=== PATIENT | male | born 1990 | race Caucasian/White ===

== ENCOUNTER 2019-12-09 12:00 | Inpatient (IN) | payer MEDICARE, MEDICAID, SELFPAY ==
[2019-12-09] VITALS (20 sets, daily range): BP systolic 106–183; BP diastolic 71–113; PULSE 89–151; RESP 17–30; TEMP 36.6–36.9; O2SAT 94–98; BMI 54.2
--- NOTE | 2019-12-09 12:11 | ED_ITS ---
HPI - General Adult General: Chief complaint: General Medical Stated complaint: abnormal hr Time Seen by Provider: 12/09/19 12:04 History of Present Illness: HPI narrative: 29 -year-old male with a history of hypertension presented to the doctor's office to get refills on his medications. He denies any chest pain his heart rate was rapid and beating he is a little bit sweaty when he is here today but he states he was get sweaty easily and just feels a little hot and flushed she does state he feels nervous. He did run out of his blood pressure medications as well as escatalopram and trazodone. He denies any chest pain denies any dysuria urgency or frequency no recent respiratory symptoms. No vomiting or diarrhea. Associated symptoms: Deny chest pain, dyspnea, malaise, nausea, rash or vomiting Review of Systems Const: Denies: fever, chills, body aches, change in appetite, fatigue or robbin ise ENMT: Denies: throat pain, ear pain, nasal discharge or nasal congestion Card: Denies: chest pain, edema, shortness of breath on exertion or shortness of breath when lying down Resp: Denies: shortness of breath, productive cough or non-productive cough GI: Denies: abdominal pain, nausea, vomiting, vomiting blood, coffee grounds in vomit, diarrhea, constipation, bloating, blood in stool or black tarry stool : Denies: flank pain, painful urination, urinary frequency or urinary urgency Skin/Breast: Denies: rash or itching PFSH ED PFSH: Medical History (Updated 12/11/19 @ 07:25 by Gareth Frankel DO) Cognitive developmental delay Depression HTN (hypertension) Morbid obesity Surgical History (Updated 12/09/19 @ 16:36 by Liberty Montoya MD) No history of previous surgery Social History (Updated 12/09/19 @ 16:37 by Liberty Montoya MD) Smoking and tobacco status: never smoked Alcohol intake: never Substance/Drug Use: never Lives independently: No Household members: family Physical Exam Const: COMMON NORMALS: no apparent distress GENERAL APPEARANCE: cooperative and comfortable ORIENTATION/CONSCIOUSNESS: Yes awake, Yes oriented to person, Yes oriented to place and Yes oriented to time HENMT: COMMON NORMALS: normocephalic, head/scalp atraumatic, hearing grossly normal bilaterally, external ears normal, EAC's normal, TM's normal bilaterally, nasal mucous membranes and turbinates normal, moist oral mucous membranes and oropharynx normal HEAD & SCALP: normocephalic and atraumatic NOSE: nasal mucous membranes and turbinates normal EXTERNAL EAR: Yes external ears normal EXTERNAL AUDITORY CANAL: EAC's normal TYMPANIC MEMBRANE: TM's normal bilaterally Eye: COMMON NORMALS: PERRL, EOMs intact bilaterally, conjunctivae normal and no scleral icterus CONJUNCTIVA: Yes conjunctivae normal PUPIL: Yes PERRL Neck/C-Spine: COMMON NORMALS: full ROM, no lymphadenopathy, supple and no JVD Lymph: LYMPHATIC: no lymphadenopathy noted and no lymphedema noted Resp: COMMON NORMALS: normal respiratory effort, no retractions, no use of accessory muscles and clear to auscultation bilaterally AUSCULTATION: clear to auscultation bilaterally Cardio: COMMON NORMALS: no JVD, regular rhythm and no murmurs RATE: tachycardic RHYTHM: regular rhythm GI: COMMON NORMALS: soft to palpation and no hepatosplenomegaly AU SCULTATION: Yes normoactive bowel sounds PALPATION: Yes soft, No tender, No guarding and Yes no hepatosplenomegaly Extremity: COMMON NORMALS: normal to inspection, normal capillary refill, no clubbing, cyanosis or edema, no calf tenderness and no pedal edema Neuro: SENSORIUM/ORIENTATION: Yes oriented to person, Yes oriented to place and Yes oriented to time Skin: COMMON NORMALS: no rashes or lesions noted GENERAL SKIN EXAM: no rashes or lesions noted Course Vital Signs: Vital signs: Vital Signs Temperature 97.9 F 12/11/19 04:26 Pulse Rate 120 H 12/11/19 06:00 Respiratory Rate 20 H 12/11/19 06:00 Blood Pressure 108/74 12/11/19 06:00 Pulse Oximetry 97 12/11/19 06:00 MDM - General Adult MDM Narrative: Medical decision making narrative: No evidence of sepsis patient was diaphoretic when he first came in he tells me he sweats a lot. He denies use of any street drugs. Of started on esmolol drip and was able to get his heart rate slowed down blood pressure improved we will go ahead and admit him to ICU have discussed with the hospitalist. 1 of his EKG showed what the computer had read as A. fib however it does appear to be sinus tachycardia. There are P waves present. Lab Data: Labs: Lab Results 12/09/19 12/09/19 12/09/19 Range/Units 12:17 12:17 12:17 WBC 10.7 H (4.0-10.0) 10^3/ uL RBC 6.16 H (4.1-5.3) 10^6/u L Hgb 17.6 H (11.7-16.6) g/dL Hct 52.8 H (42.0-52.0) % MCV 85.7 (80-94) fL MCH 28.6 (28.0-34.0) pg MCHC 33.3 (30.0-36.0) g/dL RDW 13.2 (12.1-15.1) % Plt Count 344 (130-400) 10^3/c mm MPV 10.5 H (7.4-10.4) fL Neut % (Auto) 64.0 % Lymph % (Auto) 22.4 % [place] % (Auto) 9.1 % Eos % (Auto) 1.7 % Baso % (Auto) 0.7 % Neut # (Auto) 6.9 (1.8-7.7) 10^3/u L Lymph # (Auto) 2.4 (0.8-4.8) 10^3/u L [place] # (Auto) 1.0 H (0.2-0.9) 10^3/u L Eos # (Auto) 0.2 (0.0-0.8) 10^3/u L Baso # (Auto) 0.1 (0.0-0.1) 10^3/u L Nucleated RBC % (a uto) 0 % Nucleated RBCs # 0.0 /100WBC D-Dimer (0-0.59) ug/mIFE U Specimen Type Sample Site ABG pH (7.35-7.45) ABG pCO2 (35-45) mmHg ABG pO2 (80.0-100.0) mmH g ABG HCO3 (22-26) mmol/L ABG O2 Saturation ABG Base Excess (-2.0-2.0) mmol/ L Je Test A-a O2 Gradient (5-10) mmHg Hematocrit (42-52) % Hgb O2 Saturation (95-100) % Carboxyhemoglobin (0.4-20.1) %THgb Methemoglobin (0.4-1.5) % Total Hemoglobin (14-18) g/dL Ionized Calcium (1.1-1.4) mmol/L O2 Delivery Device FiO2 % Road Freight Brake Coupler ID Sodium 133 L (136-145) mmol/L Potassium 4.3 (3.5-5.1) mmol/L Chloride 95 L (98-107) mmol/L Carbon Dioxide 23 (22-29) mmol/L Anion Gap 19.3 H (5-19) BUN 14 (6-20) mg/dL Creatinine 0.7 (0.7-1.2) mg/dL GFR Calculation 132.4 H (90-130) mL/min Glucose 366 H (65-115) mg/dL Calculated Osmolal ity 287 (285-295) mOsm/k g Calcium 9.4 (8.5-10.5) mg/dL Total Bilirubin 1.0 (0.15-1.2) mg/dL AST 88 H (0-40) U/L ALT 129 H (0-41) U/L Alkaline Phosphata se 98 (40-130) IU/L Troponin T Baselin e 7 (0-15) ng/mL Troponin T 120 Min [place] (0-15) ng/mL Delta Troponin T (0-10) ABS# NT-Pro-B Natriuret Pep (0-125) pg/mL Total Protein 7.5 (6.6-8.7) g/dL Albumin 4.2 (3.5-5.2) g/dL Globulin 3.3 (1.3-4.6) g/dL TSH 1.43 (0.27-4.20) uIU/ mL 12/09/19 12/09/19 12/09/19 Range/Units 12:17 12:19 14:12 WBC (4.0-10.0) 10^3/ uL RBC (4.1-5.3) 10^6/u L Hgb (11.7-16.6) g/dL Hct (42.0-52.0) % MCV (80-94) fL MCH (28.0-34.0) pg MCHC (30.0-36.0) g/dL RDW (12.1-15.1) % Plt Count (130-400) 10^3/c mm MPV (7.4-10.4) fL Neut % (Auto) % Lymph % (Auto) % [place] % (Auto) % Eos % (Auto) % Baso % (Auto) % Neut # (Auto) (1.8-7.7) 10^3/u L Lymph # (Auto) (0.8-4.8) 10^3/u L [place] # (Auto) (0.2-0.9) 10^3/u L Eos # (Auto) (0.0-0.8) 10^3/u L Baso # (Auto) (0.0-0.1) 10^3/u L Nucleated RBC % (a uto) % Nucleated RBCs # /100WBC D-Dimer 0.53 (0-0.59) ug/mIFE U Specimen Type Arterial Sample Site Radial, right ABG pH 7.44 (7.35-7.45) ABG pCO2 34.2 L (35-45) mmHg ABG pO2 78.1 L (80.0-100.0) mmH g ABG HCO3 23.3 (22-26) mmol/L ABG O2 Saturation 96.5 ABG Base Excess -0.1 (-2.0-2.0) mmol/ L Je Test Pos A-a O2 Gradient 28.8 H (5-10) mmHg Hematocrit 54.2 H (42-52) % Hgb O2 Saturation 95.1 (95-100) % Carboxyhemoglobin 0.9 (0.4-20.1) %THgb Methemoglobin 0.6 (0.4-1.5) % Total Hemoglobin 17.7 (14-18) g/dL Ionized Calcium 1.1 (1.1-1.4) mmol/L O2 Delivery Device None FiO2 21.0 % Road Freight Brake Coupler ID ed Sodium 135.0 (136-145) mmol/L Potassium 4.3 (3.5-5.1) mmol/L Chloride (98-107) mmol/L Carbon Dioxide (22-29) mmol/L Anion Gap (5-19) BUN (6-20) mg/dL Creatinine (0.7-1.2) mg/dL GFR Calculation (90-130) mL/min Glucose 358.0 H (65-115) mg/dL Calculated Osmolal ity (285-295) mOsm/k g Calcium (8.5-10.5) mg/dL Total Bilirubin (0.15-1.2) mg/dL AST (0-40) U/L ALT (0-41) U/L Alkaline Phosphata se (40-130) IU/L Troponin T Baselin e (0-15) ng/mL Troponin T 120 Min [place] 7.80 (0-15) ng/mL Delta Troponin T 0.80 (0-10) ABS# NT-Pro-B Natriuret Pep (0-125) pg/mL Total Protein (6.6-8.7) g/dL Albumin (3.5-5.2) g/dL Globulin (1.3-4.6) g/dL TSH (0.27-4.20) uIU/ mL 12/09/19 Range/Units 14:12 WBC (4.0-10.0) 10^3/ uL RBC (4.1-5.3) 10^6/u L Hgb (11.7-16.6) g/dL Hct (42.0-52.0) % MCV (80-94) fL MCH (28.0-34.0) pg MCHC (30.0-36.0) g/dL RDW (12.1-15.1) % Plt Count (130-400) 10^3/c mm MPV (7.4-10.4) fL Neut % (Auto) % Lymph % (Auto) % [place] % (Auto) % Eos % (Auto) % Baso % (Auto) % Neut # (Auto) (1.8-7.7) 10^3/u L Lymph # (Auto) (0.8-4.8) 10^3/u L [place] # (Auto) (0.2-0.9) 10^3/u L Eos # (Auto) (0.0-0.8) 10^3/u L Baso # (Auto) (0.0-0.1) 10^3/u L Nucleated RBC % (a uto) % Nucleated RBCs # /100WBC D-Dimer (0-0.59) ug/mIFE U Specimen Type Sample Site ABG pH (7.35-7.45) ABG pCO2 (35-45) mmHg ABG pO2 (80.0-100.0) mmH g ABG HCO3 (22-26) mmol/L ABG O2 Saturation ABG Base Excess (-2.0-2.0) mmol/ L Je Test A-a O2 Gradient (5-10) mmHg Hematocrit (42-52) % Hgb O2 Saturation (95-100) % Carboxyhemoglobin (0.4-20.1) %THgb Methemoglobin (0.4-1.5) % Total Hemoglobin (14-18) g/dL Ionized Calcium (1.1-1.4) mmol/L O2 Delivery Device FiO2 % Road Freight Brake Coupler ID Sodium (136-145) mmol/L Potassium (3.5-5.1) mmol/L Chloride (98-107) mmol/L Carbon Dioxide (22-29) mmol/L Anion Gap (5-19) BUN (6-20) mg/dL Creatinine (0.7-1.2) mg/dL GFR Calculation (90-130) mL/min Glucose (65-115) mg/dL Calculated Osmolal ity (285-295) mOsm/k g Calcium (8.5-10.5) mg/dL Total Bilirubin (0.15-1.2) mg/dL AST (0-40) U/L ALT (0-41) U/L Alkaline Phosphata se (40-130) IU/L Troponin T Baselin e (0-15) ng/mL Troponin T 120 Min [place] (0-15) ng/mL Delta Troponin T (0-10) ABS# NT-Pro-B Natriuret Pep 174 H (0-125) pg/mL Total Protein (6.6-8.7) g/dL Albumin (3.5-5.2) g/dL Globulin (1.3-4.6) g/dL TSH (0.27-4.20) uIU/ mL Discharge Plan Discharge Patient Disposition: Admitted As Inpatient Admit Provider: Liberty Montoya Clinical Impression: Tachycardia, HTN (hypertension) Condition: Stable Interventions: ED Discharge Assessment Last Done: 12/09/19 17:37 Discharge Date/Time: 12/09/19 17:10 Coding Level of Care Code ED Wheel Buffer for Chg Fwd Exam Comprehensive
--- NOTE | 2019-12-09 12:14 | ECG_ITS ---
Measurements Intervals [place] Rate: 114 P: 46 [place]: 150 QRS: 47 QRSD: 93 T: 20 QT: 315 QTc: 435 SINUS TACHYCARDIA INDETERMINATE AXIS ABNORMAL RHYTHM ECG No previous ECG available for comparison Electronically Signed On 12-09-2019 21:03:39 CDT by Shira Rodríguez M.D. [id number] f
--- NOTE | 2019-12-09 12:14 | XR_ITS ---
WS: [id number] PORTABLE CHEST HISTORY: dyspnea/cough COMPARISON: None available. Mild haziness and interstitial thickening over both lungs. No pneumonia. No pleural effusion or pneum othorax. Cardiac size: Normal. Mediastinum/Aorta: Normal mediastinum. No osseous abnormality seen. XR/XR chest 1V portable [id number] IMPRESSION: Mild interstitial edema. No pneumonia.
[2019-12-09 12:24] LABS: Basophils # 0.1 10^3/uL (0.0-0.1); Basophils % 0.7 %; Eosinophils # 0.2 10^3/uL (0.0-0.8); Eosinophils % 1.7 %; Hematocrit 52.8 % (42.0-52.0); Hemoglobin 17.6 g/dL (11.7-16.6); Lymphocytes # 2.4 10^3/uL (0.8-4.8); Lymphocytes % 22.4 %; Mean Corpuscular HGB Conc 33.3 g/dL (30.0-36.0); Mean Corpuscular Hemoglobin 28.6 pg (28.0-34.0); Mean Corpuscular Volume 85.7 fL (80-94); Mean Platelet Volume 10.5 fL (7.4-10.4); Monocytes % 9.1 %; Neutrophils # 6.9 10^3/uL (1.8-7.7); Nucleated Red Blood Cells % 0 %; Platelet Count 344 10^3/cmm (130-400); Red Blood Count 6.16 10^6/uL (4.1-5.3); Red Cell Distribution Width 13.2 % (12.1-15.1); White Blood Count 10.7 10^3/uL (4.0-10.0)
[2019-12-09 12:30] LABS: ABG PCO2 34.2 mmHg (35-45); ABG PH Result 7.44 (7.35-7.45); Alveolar-Arterial Oxygen Gradi 28.8 mmHg (5-10); Arterial Blood Gas Hematocrit 54.2 % (42-52); Base Excess ABG -0.1 mmol/L (-2.0-2.0); Blood Gas Allen Test Pos; Blood Gas Sample Site Radial, right; Blood Gas Sample Type Arterial; Carboxyhemoglobin 0.9 %THgb (0.4-20.1); HCO3 ABG 23.3 mmol/L (22-26); HGB O2 Sat 95.1 % (95-100); Ionized Calcium Level - ABG 1.1 mmol/L (1.1-1.4); Methemoglobin 0.6 % (0.4-1.5); Oxygen Saturation ABG 96.5; PO2 ABG 78.1 mmHg (80.0-100.0); Potassium Level - ABG 4.3 mmol/L (3.5-5.0); Total Hemoglobin 17.7 g/dL (14-18)
--- NOTE | 2019-12-09 12:31 | ECG_ITS ---
Measurements Intervals [place] Rate: 192 P: [place]: 0 QRS: 130 QRSD: 93 T: 15 QT: 225 QTc: 403 ATRIAL FIBRILLATION WITH RAPID VENTRICULAR RESPONSE WITH ABERRANT CONDUCTION OR VENTRICULAR PREMATURE COMPLEXES NONSPECIFIC ST & T-WAVE ABNORMALITY No previous ECG available for comparison Electronically Signed On 12-09-2019 21:03:02 CDT by Shira Rodríguez M.D. [id number] f
[2019-12-09] MEDS: metoprolol tartrate 25 mg Tablet PO ×2 (12:42→19:04)
[2019-12-09] MEDS: metoprolol tartrate 1 mg/1 mL SDV 5 mL 5 MG IV (12:42)
[2019-12-09 12:46] LABS: Troponin(5th) Baseline 7 ng/mL (0-15)
[2019-12-09 12:52] LABS: Alanine Aminotransferase 129 U/L (0-41); Albumin Level 4.2 g/dL (3.5-5.2); Alkaline Phosphatase 98 IU/L (40-130); Anion Gap 19.3 (5-19); Aspartate Amino Transferase 88 U/L (0-40); Blood Urea Nitrogen 14 mg/dL (6-20); Calcium 9.4 mg/dL (8.5-10.5); Carbon Dioxide 23 mmol/L (22-29); Chloride 95 mmol/L (98-107); Globulin 3.3 g/dL (1.3-4.6); Glomerular Filtration Rate 132.4 mL/min (90-130); Glucose 366 mg/dL (65-115); Osmolality Calculated 287 mOsm/kg (285-295); Potassium 4.3 mmol/L (3.5-5.1); Sodium 133 mmol/L (136-145); Thyroid Stimulating Hormone 1.43 uIU/mL (0.27-4.20); Total Protein 7.5 g/dL (6.6-8.7)
[2019-12-09] MEDS: esmolol drip 2,500 MG/250 ML PREMIX 2721.6 MG IV (12:56)
[2019-12-09] MEDS: LORazepam 2 mg/mL INJ 1 mL IVP (16:30)
[2019-12-09] MEDS: FUROsemide 10 mg/mL SDV 4mL 40 MG IVP (16:31)
--- NOTE | 2019-12-09 16:32 | P.HP_ITS ---
Providers/Chief Complaint Admitting Physician: Liberty Montoya MD Chief Complaint: TACHYCARDIA, HTN History of Present Illness Gregor Shepard is a 29 year old male with PMHx of HTN, Cognitive developmental delay, Morbid obesity, Anxiety/depression, presents from PCP office for further evaluation of noted tachycardia and hypertension. Due to patient's underlying developmental delay he is unable to provide much in the way of history and has not been admitted to our facility before so limited collateral information to reference from review of medical record. I spoke with patient's mother on the phone but she is not able to provide much more in terms of additional history. She is able to tell me that patient has been feeling unwell recently though no further details are provided. She took him to see his PCP earlier today when he was noted to be hypertensive and tachycardic as well as quite diaphoretic hence visit to ER. Patient states that he lives with his cousin and denies having had to stay in the hospital before. Mother states that patient is a non-smoker, does not use any alcohol or illicit drugs. From medication reconciliation he is on lisinopril 40 mg daily, trazodone 150 nightly and Lexapro 20 mg daily which he reportedly takes daily. He was quite tachycardic on arrival with heart rates up in the 150-180 range and hypertensive. He received both IV and oral doses of metoprolol with continued hypertensive urgency and tachycardia. Rhythm almost looks like atrial flutter on telemetry and EKG. Work-up indicates leukocytosis with a white count of 10.7, hemoglobin of 17.6, sodium of 133, otherwise normal chemistry other than blood sugar of 366, AST of 88, ALT of 129, normal TSH, negative troponins x2, ABG with some noted mild hypoxia with a PO2 of 78.1, otherwise normal pH at 7.44. He has had an echo done previously in April 2019 showing an ejection fraction of 60% with no regional wall motion abnormalities though study was quite poor. He is quite diaphoretic during my assessment in the ER and appears very anxious. Chest x-ray per my review shows at least mild pulmonary vascular congestion. We will give a trial dose of 40 mg of IV Lasix as well as a dose of 2 mg IV Ativan. Patient is being admitted for further evaluation of tachycardia and hypertensive urgency as well as continued esmolol drip. He will need to be admitted to ICU due to the drip. As patient has cognitive developmental delay at baseline and is very anxious and has limited understanding at baseline, mother has agreed to come and stay with the patient. Review of Systems General: Reports: other (limited due to patient's baseline cognitive delay) Const: Reports: diaphoresis; Denies: fever or chills Card: Reports: palpitations; Denies: chest pain Resp: Denies: shortness of breath Psych: Reports: anxiety Medications/Allergies Home Medications Medication Instructions Recorded Confirmed Last Taken Type escitalopram oxalate 20 mg PO DAILY 12/09/19 12/09/19 Unknown History ibuprofen 200 - 800 mg PO PRN 12/09/19 12/09/19 Unknown History lisinopril 40 mg PO DAILY 12/09/19 12/09/19 12/09/19 History trazodone 150 mg PO BEDTIME 12/09/19 12/09/19 Unknown History Allergies Allergy/AdvReac Type Severity Reaction Status Date / Time No Known Allergies Allergy Verified 12/09/19 12:08 PFSH Acute PFSH: Medical History (Updated 12/09/19 @ 16:59 by Liberty Montoya MD) Cognitive developmental delay Depression HTN (hypertension) Morbid obesity Surgical History (Updated 12/09/19 @ 16:36 by Liberty Montoya MD) No history of previous surgery Social History (Updated 12/09/19 @ 16:37 by Liberty Montoya MD) Smoking and tobacco status: never smoked Alcohol intake: never Substance/Drug Use: never Lives independently: No Household members: family Vitals/I&O/Wt Last Vital Signs Temp 97.8 F 12/09/19 12:05 Pulse 116 H 12/09/19 12:05 Resp 18 12/09/19 12:05 BP 183/113 12/09/19 12:05 Pulse Ox 97 12/09/19 12:05 12/09/19 12/09/19 12/09/19 06:59 14:59 22:59 Intake Total 250 / 250 Balance 250 / 250 Weight last 48 hrs Weight 181.437 kg Physical Exam Const: COMMON NORMALS: no apparent distress, oriented x3 and alert GENERAL APPEARANCE: anxious and diaphoretic; not comfortable NUTRITIONAL APPEARANCE: obese morbidly obese ORIENTATION/CONSCIOUSNESS: Yes awake OTHER: -face is flushed HENMT: COMMON NORMALS: normocephalic, head/scalp atraumatic, hearing grossly normal bilaterally and moist oral mucous membranes HEAD & SCALP: normoce phalic and atraumatic Eye: COMMON NORMALS: PERRL, EOMs intact bilaterally and conjunctivae normal CONJUNCTIVA: Yes conjunctivae normal PUPIL: Yes PERRL Neck/C-Spine: COMMON NORMALS: full ROM GENERAL: Yes normal visual inspection and Yes trachea midline OTHER: -short, thick neck Chest: COMMONS NORMALS: inspection of chest normal Resp: COMMON NORMALS: normal respiratory effort, no retractions, no use of accessory muscles and clear to auscultation bilaterally EFFORT & INSPECTION: Yes able to speak in complete sentences, Yes symmetric chest movement and No tachypneic AUSCULTATION: clear to auscultation bilaterally Cardio: COMMON NORMALS: S1 normal heart sound, S2 normal heart sound and no murmurs RATE: tachycardic RHYTHM: abnormal rhythm irregularly irregular HEART SOUNDS: S1 normal and S2 normal GI: COMMON NORMALS: normal to inspection, nondistended, normoactive bowel sounds, soft to palpation and non-tender INSPECTION: Yes central obesity PALPATION: Yes soft Extremity: COMMON NORMALS: normal to inspection, full ROM, no clubbing, cyanosis or edema and no pedal edema Neuro: COMMON NORMALS: oriented x3, moves all extremities, no focal motor deficits and no sensory deficits noted Psych: COMMON NORMALS: mental status grossly normal, thought process normal, cooperative, affect normal and speech normal SPEECH: Yes normal speech THOUGHT PROCESS: normal thought process Skin: COMMON NORMALS: no rashes or lesions noted, no jaundice, no petechiae and no mottling GENERAL SKIN EXAM: no rashes or lesions noted Data : 12/09/19 12:17 12/09/19 12:17 A&P Assessment and plan (1) Tachycardia: -noted to be tachycardic in clinic earlier today, no prior known hx of arrhythmia -unknown trigger though appears to have some element of anxiety clinically and fluid overload as noted on CXR -telemetry monitoring -monitor vital signs closely -received IV and oral dose of metoprolol with continued tachycardia; now on Esmolol drip, titrate as needed -IVF hydration x 1 L given in ED; gentle IV hydration due to risk for fluid overload -40 mg dose of IV lasix given in ED; continue gentle diuresis for now -check BNP -check D-dimer -UA, UDS pending though low suspicion for drug use -Echo ordered, previously done in 04/2019 though poor study -troponins, TSH, Hg wnl Status: Acute (2) Hypertensive urgency: -presented with significant hypertension, continues to be hypertensive -currently on Esmolol drip -close monitoring of vital signs, especially BP -resume lisinopril, add BB, amlodipine and is on lasix -Echo ordered Status: Acute (3) HTN (hypertension): -as noted above Status: Chronic Qualifiers: Hypertension type: essential hypertension Qualified Code(s): I10 - Essential (primary) hypertension (4) Depression: -resume trazodone, hold lexapro for now given current tachycardia Status: Chronic Qualifiers: Depression Type: unspecified Qualified Code(s): F32.9 - Major depressive disorder, single episode, unspecified (5) Cognitive developmental delay: -patient has baseline cognitive developmental delay; he is extremely nervous being in the hospital which is an unfamiliar environment for him which exacerbates the tachycardia and hypertensive urgency. I have spoken to patient's mother and she will come and stay with patient during his hospital stay in an effort to keep him calm. Status: Chronic (6) Morbid obesity: -BMI-54 kg/m2 Status: Chronic Additional A&P Information -noted hyperglycemia; check A1c as no known hx of DM; accuchecks, consistent carb diet for now -Dispo: home, lives with cousin -Code status: FULL code -admit to ICU due to need for esmolol drip Attestations Medical Necessity Statement*: Gregor Shepard's hospital stay will require greater than 2 midnights for management of significant tachycardia and hypertensive urgency requiring esmolol drip currently. Time Spent in Patient Care: Greater than 35 minutes (>than 50% of time spent in counselling and/or direct pt care on unit) . Coding Level of Care Code Acute Heating Element Builder for Demetri Fwbon Diagnoses Tachycardia R00.0 Hypertensive urgency I16.0 HTN (hypertension) I10 Hypertension type: essential hypertension Depression F32.9 Depression Type: unspecified Cognitive developmental delay F81.9 Morbid obesity E66.01
[2019-12-09 17:09] LABS: NT Pro B Type Natriuretic Pept 174 pg/mL (0-125)
--- NOTE | 2019-12-09 18:14 | ECG_ITS ---
Measurements Intervals [place] Rate: 98 P: 29 CT: 187 QRS: 93 QRSD: 94 T: 34 QT: 312 QTc: 398 SINUS RHYTHM BORDERLINE RIGHT AXIS DEVIATION [QRS AXIS > 90] No previous ECG available for comparison Electronically Signed On 12-09-2019 21:10:40 CDT by Shira Rodríguez M.D. [id number]
[2019-12-09 18:23] LABS: Glucose Point of Care 407 mg/dL (70-110)
[2019-12-09] MEDS: esmolol drip 2,500 MG/250 ML PREMIX 100 MG IV (18:27)
[2019-12-09 19:18] LABS: Troponin 5 6HR 8.07 ng/mL (0-15); Troponin 5 6HR Delta 1.07 ng/L (0-12)
--- NOTE | 2019-12-09 20:00 | PC.NURSE ---
pt hr noted to be 145-[address] bennett. 20 mg cardizem bolus ordered and given. colette anderson. 0821 pt hr 120-140 p bolus. an bland.
--- NOTE | 2019-12-09 20:02 | PC.NURSE ---
1900 bedside report rcvd at this time. pt ambulated to bathroom to void. urine sample sent to lab per eder. pt denies pain. pt hr 120-140 afib . esmolol stopped and cardizem started at 5 mg/hr. titrated per protocol. pt mother at bedside for emotional support. questions answered. update on poc provided. elian bland .
[2019-12-09 20:31] LABS: Glucose Point of Care 407 mg/dL (70-110)
[2019-12-09 21:01] LABS: Amphetamines Screen Urine Negative (Negative); Barbiturates Screen Urine Negative (Negative); Benzodiazepines Screen Urine Negative (Negative); Cocaine Screen Urine Negative (Negative); Opiate Screen Urine Negative (Negative); PCP Screen Urine Negative (Negative); THC Screen Urine Negative (Negative)
[2019-12-09] MEDS: trazodone 150 mg Tablet PO (21:34)
--- NOTE | 2019-12-09 21:35 | PC.NURSE ---
pt up to bathroom converted to sr 90s
--- NOTE | 2019-12-09 21:37 | PC.NURSE ---
pt back in a fib 130s
--- NOTE | 2019-12-09 22:31 | PC.NURSE ---
pt hr noted 120-[address] bennett . will give bolus of amiodarone and start amiodarone gitt per protocol. an.
[2019-12-09 22:47] LABS: D Dimer 0.53 ug/mIFEU (0-0.59)
[2019-12-09 22:58] LABS: Add Urine Microscopic? YES; Bacteria Urine TRACE; Bilirubin Urine Neg (NEGATIVE); Blood Urine Neg (Negative); Glucose Urine UA 4+ (Normal); Ketones Urine 1+ (Negative); Leukocyte Esterase Urine Negative (Negative); Nitrate Urine Negative (Negative); Protein Urine Trace (Negative); RBC Urine 0-4 /hpf (0-2); Squamous Epithelial Cell Urine 0-4 (0-5); Urine Appearance Clear (CLEAR); Urine Color Yellow (Yellow); Urobilinogen Urine Norm (Negative); WBC Urine 0-4 /hpf (0-5); pH Urine 5 (5-7)
[2019-12-09 23:11] LABS: Magnesium 1.8 mg/dL (1.7-2.3)
[2019-12-10] VITALS (45 sets, daily range): BP systolic 106–147; BP diastolic 66–94; PULSE 63–140; RESP 10–34; TEMP 36.6–36.9; O2SAT 93–96; BMI 54.2
[2019-12-10 00:06] LABS: Magnesium 2.1 mg/dL (1.7-2.3)
--- NOTE | 2019-12-10 00:58 | PC.NURSE ---
hr 107 afib 121/67 bp. cardizem @ 15mg/hr, amiodarone @ 1 mg/min. colette anderson rn.
--- NOTE | 2019-12-10 02:38 | PC.NURSE ---
Dr. Simms called to ask if patient's heart rate had improved. Notified of heart rate being in 120s. Ordered to give another 150 mg Amiodarone bolus and taper off Cardizem drip. Ordered to call back if no improvement in heart rate. Amio bolus given at this time. Will monitor.
--- NOTE | 2019-12-10 04:54 | PC.NURSE ---
Dr. Simms notified of patient's heart rate still running 120s-130s.
[2019-12-10 04:56] LABS: Basophils # 0.1 10^3/uL (0.0-0.1); Basophils % 0.6 %; Eosinophils # 0.2 10^3/uL (0.0-0.8); Hematocrit 48.9 % (42.0-52.0); Hemoglobin 16.2 g/dL (11.7-16.6); Lymphocytes # 2.5 10^3/uL (0.8-4.8); Mean Corpuscular HGB Conc 33.1 g/dL (30.0-36.0); Mean Corpuscular Hemoglobin 29.2 pg (28.0-34.0); Mean Corpuscular Volume 88.1 fL (80-94); Mean Platelet Volume 10.6 fL (7.4-10.4); Monocytes % 10.5 %; Neutrophils # 5.7 10^3/uL (1.8-7.7); Neutrophils % 58.7 %; Nucleated Red Blood Cells % 0 %; Platelet Count 311 10^3/cmm (130-400); Red Blood Count 5.55 10^6/uL (4.1-5.3); Red Cell Distribution Width 13.7 % (12.1-15.1); White Blood Count 9.7 10^3/uL (4.0-10.0)
[2019-12-10 05:22] LABS: Estmated Average Glucose 249; Hemoglobin A1C 10.3 % (4.0-6.0)
[2019-12-10 05:24] LABS: Alanine Aminotransferase 113 U/L (0-41); Albumin Level 3.6 g/dL (3.5-5.2); Alkaline Phosphatase 83 IU/L (40-130); Anion Gap 18.9 (5-19); Aspartate Amino Transferase 79 U/L (0-40); Blood Urea Nitrogen 19 mg/dL (6-20); Calcium 8.9 mg/dL (8.5-10.5); Carbon Dioxide 23 mmol/L (22-29); Chloride 96 mmol/L (98-107); Globulin 2.8 g/dL (1.3-4.6); Glomerular Filtration Rate 132.4 mL/min (90-130); Glucose 356 mg/dL (65-115); Osmolality Calculated 289 mOsm/kg (285-295); Potassium 3.9 mmol/L (3.5-5.1); Sodium 134 mmol/L (136-145); Total Bilirubin 0.9 mg/dL (0.15-1.2); Total Protein 6.4 g/dL (6.6-8.7)
[2019-12-10 05:25] LABS: Magnesium 1.8 mg/dL (1.7-2.3)
[2019-12-10] MEDS: metoprolol tartrate 25 mg Tablet 50 MG PO (05:48)
--- NOTE | 2019-12-10 05:49 | PC.NURSE ---
discussed pt c dr. bennett hr 120's order to continue amiodarone @ 1 mg / min. increase metoprolol po to 50 mg bid. update provided to family . an.
[2019-12-10 06:04] LABS: INR 0.97 (0.8-1.2)
[2019-12-10 07:30] LABS: Glucose Point of Care 305 mg/dL (70-110)
--- NOTE | 2019-12-10 08:10 | P.PN_ITS ---
Subjective Subjective: Interval history: Due to persistent tachycardia, was switched to Amiodarone overnight. BP controlled. Accuchecks noted, required 38 units of ISS, will start on long acting and meal time insulin. AM labs noted includng A1c- 10.3. Case dscussed with Dr. Rodríguez who will see patient. Mum present at bedside during my assessment, arrhythmia persists. Quite anxious. Discussed new diagnosis of DM and requested nurse do some patient education on this as well. Medications: Reviewed: Yes Medication Review Details: Active Medications Generic Name Dose Route Start Last Admin Trade Name Freq PRN Reason Stop Dose Admin Acetaminophen 650 mg 12/09/19 17:04 Tylenol PO Q6H PRN MILD PAIN Amlodipine Besylat e 5 mg 12/10/19 09:00 Norvasc PO DAILY AJ Dextrose 25 ml 12/09/19 17:04 D50w IVP ONCE PRN hypoglycemia prot ocol Protocol Dextrose 50 ml 12/09/19 17:04 D50w IVP PRN PRN hypoglycemia prot ocol Protocol Furosemide 40 mg 12/09/19 17:04 12/09/19 18:29 Lasix IVP Not Given Q24H AJ Glucagon 1 mg 12/09/19 17:04 Glucagen IM ONCE PRN Adult Acute Hypog lycemia Prot. Protocol Dextrose 500 mls @ 100 mls /hr 12/09/19 17:04 D5w IV ONCE PRN Adult Acute Hypog lycemia Prot Protocol Diltiazem HCl 125 mg/ Sodium 125 mls @ 0 mls/h r 12/09/19 18:45 12/10/19 03:34 Chloride IV 0 mg/hr .Q0M AJ 0 mls/hr Titration Protocol Per Protocol Amiodarone HCl 900 mg/ 518 mls @ 0 mls/h r 12/09/19 22:30 12/09/19 23:12 Dextrose/ IV Misce llaneous IV 1 mg/min Supplies .Q0M AJ 34.5 mls/hr Administration Protocol Per Protocol Insulin Aspart 0 unit 12/09/19 18:00 12/10/19 07:34 Novolog SUBCUT 10 unit WM&BEDTIME AJ Administration Protocol Insulin Aspart 10 unit 12/10/19 11:00 Novolog SUBCUT TIDAC AJ Insulin Glargine 20 unit 12/10/19 21:00 Lantus SUBCUT BEDTIME AJ Lisinopril 40 mg 12/10/19 09:00 Prinivil PO DAILY AJ Lorazepam 2 mg 12/09/19 17:04 Ativan IVP Q6H PRN ANXIETY Metoprolol Tartrat e 50 mg 12/10/19 05:45 12/10/19 05:48 Lopressor PO 50 mg BID AJ Administration Trazodone HCl 150 mg 12/09/19 21:00 12/09/19 21:34 Desyrel PO 150 mg BEDTIME AJ Administration No Known Allergies Allergy (Verified 12/09/19 12:08) Vitals/I&O/Wt Last Vital Signs Temp 98.1 F 12/10/19 05:04 Pulse 132 H 12/10/19 05:04 Resp 19 H 12/10/19 05:04 BP 112/83 12/10/19 05:04 Pulse Ox 93 12/10/19 05:04 12/09/19 12/10/19 12/10/19 22:59 06:59 14:59 Intake Total 403.084 / 653.084 379.500 / 1032.584 240 / 240 Balance 403.084 / 653.084 379.500 / 1032.584 240 / 240 Weight last 48 hrs Weight 181.437 kg Physical Exam Const: COMMON NORMALS: no apparent distress, oriented x3 and alert GENERAL APPEARANCE: anxious and diaphoretic; not comfortable NUTRITIONAL APPEARANCE: obese morbidly obese ORIENTATION/CONSCIOUSNESS: Yes awake OTHER: -face is flushed HENMT: COMMON NORMALS: normocephalic, head/scalp atraumatic, hearing grossly normal bilaterally and moist oral mucous membranes HEAD & SCALP: normocephalic and atraumatic Eye: COMMON NORMALS: PERRL, EOMs intact bilaterally and conjunctivae normal CONJUNCTIVA: Yes conjunctivae normal PUPIL: Yes PERRL Neck/C-Spine: COMMON NORMALS: full ROM GENERAL: Yes normal visual inspection and Yes trachea midline OTHER: -short, thick neck Chest: COMMONS NORMALS: inspection of chest normal Resp: COMMON NORMALS: normal respiratory effort, no retractions, no use of a ccessory muscles and clear to auscultation bilaterally EFFORT & INSPECTION: Yes able to speak in complete sentences, Yes symmetric chest movement and No tachypneic AUSCULTATION: clear to auscultation bilaterally Cardio: COMMON NORMALS: S1 normal heart sound, S2 normal heart sound and no murmurs RATE: tachycardic RHYTHM: abnormal rhythm irregularly irregular HEART SOUNDS: S1 normal and S2 normal GI: COMMON NORMALS: normal to inspection, nondistended, normoactive bowel sounds, soft to palpation and non-tender INSPECTION: Yes central obesity PALPATION: Yes soft Extremity: COMMON NORMALS: normal to inspection, full ROM, no clubbing, cyanosis or edema and no pedal edema Neuro: COMMON NORMALS: oriented x3, moves all extremities, no focal motor deficits and no sensory deficits noted SENSORIUM/ORIENTATION: Yes alert Psych: COMMON NORMALS: mental status grossly normal, thought process normal, cooperative, affect normal and speech normal SPEECH: Yes normal speech THOUGHT PROCESS: normal thought process Skin: COMMON NORMALS: no rashes or lesions noted, no jaundice, no petechiae and no mottling GENERAL SKIN EXAM: no rashes or lesions noted Data : 12/10/19 04:15 12/10/19 04:15 A&P Assessment and plan (1) Tachycardia: -noted to be tachycardic in clinic earlier today, no prior known hx of arrhythmia -unknown trigger though appears to have some element of anxiety clinically and fluid overload as noted on CXR -telemetry monitoring -continued tachycardia, looks like atrial fibrillation with RVR, otherwise stable vital signs, continue to monitor -did not respond to Esmolol drip, Cardizem drip; now on Amiodarone drip -IVF hydration x 1 L given in ED; no further IVF due to risk of fluid overload -40 mg dose of IV lasix given in ED; continue gentle diuresis for now -BNP-174; negative D-dimer -UA, UDS negative -Echo ordered, previously done in 04/2019 though poor study -troponins, TSH, Hg wnl -cardiology consult by Dr. Rodríguez appreciated; initiate AC due to [id number] score-3 Status: Acute (2) Hypertensive urgency: -presented with significant hypertension -BP controlled now -close monitoring of vital signs, especially BP -on lisinopril, BB, amlodipine, lasix -Echo ordered Status: Acute (3) HTN (hypertension): -as noted above Status: Chronic Qualifiers: Hypertension type: essential hypertension Qualified Code(s): I10 - Essential (primary) hypertension (4) Depression: -on trazodone, hold lexapro for now given current tachycardia Status: Chronic Qualifiers: Depression Type: unspecified Qualified Code(s): F32.9 - Major depressive disorder, single episode, unspecified (5) Cognitive developmental delay: -patient has baseline cognitive developmental delay; he is extremely nervous being in the hospital which is an unfamiliar environment for him which exacerbates the tachycardia and hypertensive urgency. I have spoken to patient's mother and she will come and stay with patient during his hospital stay in an effort to keep him calm. Status: Chronic (6) Morbid obesity: -BMI-54 kg/m2 Status: Chronic Additional A&P Information -noted hyperglycemia; with new diagnosis of DM, A1c-10.3; accuchecks, consistent carb diet. Add meal-time and long acting insulin -Dispo: home, lives with cousin -Code status: FULL code -ICU care due to need for amiodarone drip Attestations Medical Necessity Statement*: Patient requires hospitalization for continued management of atrial fibrillation with RVR, needs rate control. Time Spent in Patient Care: 16 - 35 minutes (>than 50% of time spent in counselling and/or direct pt care on unit) . Coding Level of Care Code Acute Director Trial for Chg Fwd Exam Comprehensive Diagnoses Tachycardia R00.0 Hypertensive urgency I16.0 HTN (hypertension) I10 Hypertension type: essential hypertension Depression F32.9 Depression Type: unspecified Cognitive developmental delay F81.9 Morbid obesity E66.01
[2019-12-10] MEDS: amlodipine 5 mg Tablet PO (09:41)
[2019-12-10] MEDS: lisinopril 20 mg Tablet 40 MG PO (09:41)
[2019-12-10 11:26] LABS: Glucose Point of Care 278 mg/dL (70-110)
--- NOTE | 2019-12-10 13:55 | P.CONIM_ITS ---
Providers/Reason For Consult Consulting Physican/Specialty*: Dr. Rodríguez, cardiology Reason for Consult*: Tachycardia Attending Physician: Liberty Montoya MD History of Present Illness History of Present Illness Gergor Shepard is a 29 year old male with past medical history of hypertension, morbid obesity, cognitive development delay, obesity, anxiety/depression was evaluated at his primary care physician's office and was noted to have tachycardia and hypertension. He was referred to the ER for further evaluation. He denies having any chest pain palpitation or shortness of breath. He denies any having any orthopnea paroxysmal nocturnal dyspnea or lower extremity swelling. No nausea vomiting decreased appetite or recent weight gain. History was obtained from the chart as well as from his mother who was available bedside. On arrival to the ER he was found to be in atrial fibrillation with rapid ventricular response. He initially received metoprolol followed by a smaller loll drip and overnight got started on amiodarone drip. His chest x-ray showed pulmonary congestion and he received Lasix 40 mg IV x1. At the time of evaluation he remains in paroxysmal atrial fibrillation and is sitting comfortably in chair. Review of Systems Const: Denies: fever or chills ENMT: Denies: nasal congestion Card: Denies: chest pain, irregular heart rhythm, shortness of breath on exertion or shortness of breath when lying down Meds/Allergies Home Medications and Allergies Home Medications Medication Instructions Recorded Confirmed Type escitalopram oxalate 20 mg PO DAILY 12/09/19 12/09/19 History ibuprofen 200 - 800 mg PO PRN 12/09/19 12/09/19 History lisinopril 40 mg PO DAILY 12/09/19 12/09/19 History trazodone 150 mg PO BEDTIME 12/09/19 12/09/19 History Allergies Allergy/AdvReac Type Severity Reaction Status Date / Time No Known Allergies Allergy Verified 12/09/19 12:08 Current Medications Current Medications Generic Name Dose Route Start Last Admin Trade Name Freq PRN Reason Stop Dose Admin Amlodipine Besylate 5 mg 12/10/19 09:00 12/10/19 09:41 Norvasc PO 5 mg DAILY AJ Administration Furosemide 40 mg 12/09/19 17:04 12/09/19 18:29 Lasix IVP Not Given Q24H AJ Diltiazem HCl 125 mg/ Sodium 125 mls @ 0 mls/hr 12/09/19 18:45 12/10/19 03:34 Chloride IV 0 mg/hr .Q0M AJ 0 mls/hr Titration Protocol Per Protocol Amiodarone HCl 900 mg/ 518 mls @ 0 mls/hr 12/09/19 22:30 12/10/19 12:18 Dextrose/ IV Miscellaneous IV 1 mg/min Supplies .Q0M AJ 34.5 mls/hr Administration Protocol Per Protocol Insulin Aspart 0 unit 12/09/19 18:00 12/10/19 12:13 Novolog SUBCUT 8 unit WM&BEDTIME AJ Administration Protocol Insulin Aspart 10 unit 12/10/19 11:00 12/10/19 12:14 Novolog SUBCUT 10 unit TIDAC AJ Administration Lisinopril 40 mg 12/10/19 09:00 12/10/19 09:41 Prinivil PO 40 mg DAILY AJ Administration Metoprolol Tartrate 50 mg 12/10/19 05:45 12/10/19 09:36 Lopressor PO Not Given BID AJ Trazodone HCl 150 mg 12/09/19 21:00 12/09/19 21:34 Desyrel PO 150 mg BEDTIME AJ Administration PFSH Acute PFSH: Medical History (Updated 12/10/19 @ 15:18 by Shira Rodríguez MD) Cognitive developmental delay Depression HTN (hypertension) Morbid obesity Surgical History (Updated 12/09/19 @ 16:36 by Liberty Montoya MD) No history of previous surgery Social History (Updated 12/09/19 @ 16:37 by Liberty Montoya MD) Smoking and tobacco status: never smoked Alcohol intake: never Substance/Drug Use: never Lives independently: No Household members: family Vitals/I&O/Wt Last Vital Signs Temp 98.1 F 12/10/19 05:04 Pulse 116 H 12/10/19 12:00 Resp 10 L 12/10/19 12:00 BP 116/80 12/10/19 12:00 Pulse Ox 93 12/10/19 10:00 12/09/19 12/10/19 12/10/19 22:59 06:59 14:59 Intake Total 403.084 / 653.084 379.500 / 1032.584 691.95 / 691.95 Balance 403.084 / 653.084 379.500 / 1032.584 691.95 / 691.95 Weight last 48 hrs Weight 400 lb Weight 400 lb Data Labs: Other Labs: Hemoglobin A1c of 10.3, AST 79 and ALT 113, albumin 3.6. NT proBNP of 174. Baseline troponin T of 7, and 6 are troponin I of 8. TSH of 1.43. Urinalysis with 4+ glucose and 1+ ketone. U tox negative. Imaging^: CXR: Radiologist's impression: Impression: Mild interstitial edema no pneumonia. A&P Assessment and plan (1) Atrial fibrillation: Its unclear how long he has been in A. fib. -[id number]=7/9, 1 for HTN, 1 for DM-2 and 1 for CHF -start on Xarelto, continue Amiodarone gtt; transition to PO amiodarone. Increase metoprolol tartate to 75 mg twice a day. -Normal TSH. Follow-up on echocardiogram once patient's heart rate is better controlled. Status: Acute Qualifiers: Atrial fibrillation type: paroxysmal Qualified Code(s): I48.0 - Paroxysmal atrial fibrillation (2) CHF (NYHA class III, ACC/AHA stage C): Lasix 40 mg IV today Status: Acute (3) HTN (hypertension): Status: Chronic Qualifiers: Hypertension type: essential hypertension Qualified Code(s): I10 - Essential (primary) hypertension (4) Morbid obesity: Status: Chronic (5) Depression: Status: Chronic Qualifiers: Depression Type: unspecified Qualified Code(s): F32.9 - Major depressive disorder, single episode, unspecified Additional A&P Information Anxiety transaminitis : f/u on CMP Hyponatremia Newly diagnosed diabetes mellitus Suspect obstructive sleep apnea: Patient is not a good historian and his mother Coding Level of Care Code Acute Silo Operator for [facility] Fwd Diagnoses Atrial fibrillation I48.0 Atrial fibrillation type: paroxysmal CHF (NYHA class III, ACC/AHA stage C) I50.9 HTN (hypertension) I10 Hypertension type: essential hypertension Morbid obesity E66.01 Depression F32.9 Depression Type: unspecified
[2019-12-10] MEDS: metoprolol tartrate 25 mg Tablet PO ×2 (14:28→18:40)
[2019-12-10] MEDS: amiodarone 200 mg Tablet 400 MG PO (14:28)
[2019-12-10 16:55] LABS: Glucose Point of Care 291 mg/dL (70-110)
[2019-12-10] MEDS: FUROsemide 10 mg/mL SDV 4mL 40 MG IVP (16:57)
[2019-12-10] MEDS: rivaroxaban 10 mg Tablet 20 MG PO (16:57)
[2019-12-10 20:48] LABS: Glucose Point of Care 339 mg/dL (70-110)
[2019-12-10] MEDS: metoprolol tartrate 50 mg Tablet 75 MG PO (20:51)
[2019-12-10] MEDS: trazodone 150 mg Tablet PO (20:51)
[2019-12-10] MEDS: insulin glargine 100 units/1 mL 20 UNIT SUBCUT (20:52)
[2019-12-11] VITALS (27 sets, daily range): BP systolic 98–159; BP diastolic 54–85; PULSE 80–124; RESP 18–31; TEMP 36–36.8; O2SAT 93–98
[2019-12-11] MEDS: amiodarone 200 mg Tablet 400 MG PO ×2 (01:12→14:08)
--- NOTE | 2019-12-11 02:00 | PC.NURSE ---
Amiodarone drip turned off at this time for HR 70's-90's, continues to remain atrial fib. Will continue to monitor.
[2019-12-11 05:42] LABS: Anion Gap 17.7 (5-19); Blood Urea Nitrogen 18 mg/dL (6-20); Carbon Dioxide 26 mmol/L (22-29); Chloride 94 mmol/L (98-107); Glomerular Filtration Rate 113.5 mL/min (90-130); Glucose 296 mg/dL (65-115); Osmolality Calculated 285 mOsm/kg (285-295); Potassium 3.7 mmol/L (3.5-5.1); Sodium 134 mmol/L (136-145)
--- NOTE | 2019-12-11 06:19 | PC.NURSE ---
Afib with rate 120's-130s . Amiodarone drip resumed at 1mg.
[2019-12-11 07:20] LABS: Glucose Point of Care 262 mg/dL (70-110)
[2019-12-11] MEDS: rivaroxaban 10 mg Tablet 20 MG PO (08:27)
[2019-12-11] MEDS: lisinopril 20 mg Tablet 40 MG PO (08:28)
[2019-12-11] MEDS: metoprolol tartrate 50 mg Tablet 75 MG PO ×2 (08:28→21:51)
[2019-12-11] MEDS: dilTIAZem 30 mg Tablet PO ×3 (09:17→21:02)
[2019-12-11 09:57] LABS: Alanine Aminotransferase 118 U/L (0-41); Albumin Level 3.9 g/dL (3.5-5.2); Alkaline Phosphatase 90 IU/L (40-130); Aspartate Amino Transferase 86 U/L (0-40); Globulin 2.9 g/dL (1.3-4.6); Total Bilirubin 1.2 mg/dL (0.15-1.2); Total Protein 6.8 g/dL (6.6-8.7)
--- NOTE | 2019-12-11 10:17 | P.PN_ITS ---
Subjective Subjective: Interval history: Amiodarone drip resumed overnight due to continued RVR. AM labs noted, including transaminitis. Noted accucheks, will adjust insulin regimen for better control. BP controlled. Patient sitting in recliner by bedside, mom present in the room, seems to be doing a little bit better and reports feeling better today as well. He is off the amiodarone drip which had been discontinued briefly overnight secondary to drop in heart rate to the 60s. Heart rate seems to be better controlled today though still remains in the 110-120 range. Has been started on oral Cardizem. Patient is voiding though there is no documentation of urine output. Medications: Reviewed: Yes Medication Review Details: Active Medications Generic Name Dose Route Start Last Admin Trade Name Freq PRN Reason Stop Dose Admin Acetaminophen 650 mg 12/09/19 17:04 Tylenol PO Q6H PRN MILD PAIN Amiodarone HCl 400 mg 12/10/19 14:09 12/11/19 01:12 Cordarone PO 400 mg Q12H AJ Administration Dextrose 25 ml 12/09/19 17:04 D50w IVP ONCE PRN hypoglycemia prot ocol Protocol Dextrose 50 ml 12/09/19 17:04 D50w IVP PRN PRN hypoglycemia prot ocol Protocol Diltiazem HCl 30 mg 12/11/19 09:15 12/11/19 09:17 Cardizem PO 30 mg Q6H AJ Administration Furosemide 40 mg 12/09/19 17:04 12/10/19 16:58 Lasix IVP Not Given Q24H AJ Glucagon 1 mg 12/09/19 17:04 Glucagen IM ONCE PRN Adult Acute Hypog lycemia Prot. Protocol Dextrose 500 mls @ 100 mls /hr 12/09/19 17:04 D5w IV ONCE PRN Adult Acute Hypog lycemia Prot Protocol Amiodarone HCl 900 mg/ 518 mls @ 0 mls/h r 12/09/19 22:30 12/11/19 09:18 Dextrose/ IV Misce llaneous IV Infused Supplies .Q0M AJ Titration Protocol Per Protocol Insulin Aspart 0 unit 12/09/19 18:00 12/11/19 07:30 Novolog SUBCUT 8 unit WM&BEDTIME AJ Administration Protocol Insulin Aspart 15 unit 12/11/19 11:00 Novolog SUBCUT TIDAC AJ Insulin Glargine 30 unit 12/11/19 21:00 Lantus SUBCUT BEDTIME AJ Lisinopril 40 mg 12/10/19 09:00 12/11/19 08:28 Prinivil PO 40 mg DAILY AJ Administration Lorazepam 2 mg 12/09/19 17:04 Ativan IVP Q6H PRN ANXIETY Metoprolol Tartrat e 75 mg 12/10/19 20:00 12/11/19 08:28 Lopressor PO 75 mg Q12H AJ Administration Trazodone HCl 150 mg 12/09/19 21:00 12/10/19 20:51 Desyrel PO 150 mg BEDTIME AJ Administration No Known Allergies Allergy (Verified 12/09/19 12:08) Vitals/I&O/Wt Last Vital Signs Temp 98.3 F 12/11/19 07:49 Pulse 124 H 12/11/19 08:00 Resp 18 12/11/19 08:00 BP 118/85 12/11/19 08:00 Pulse Ox 98 12/11/19 08:00 12/10/19 12/11/19 12/11/19 22:59 06:59 14:59 Intake Total 540 / 1591.95 972.65 / 2564.60 285.35 / 285.35 Balance 540 / 1591.95 972.65 / 2564.60 285.35 / 285.35 Weight last 48 hrs Weight 181.437 kg Weight 181.437 kg Physical Exam Const: COMMON NORMALS: no apparent distress, oriented x3 and alert GENERAL APPEARANCE: cooperative, comfortable and diaphoretic NUTRITIONAL APPEARANCE: obese morbidly obese ORIENTATION/CONSCIOUSNESS: Yes awake HENMT: COMMON NORMALS: normocephalic, head/scalp atraumatic, hearing grossly normal bilaterally and moist oral mucous membranes HEAD & SCALP: normocephalic and atraumatic Eye: COMMON NORMALS: PERRL, EOMs intact bilaterally and conjunctivae normal CONJUNCTIVA: Yes conjunctivae normal PUPIL: Yes PERRL Neck/C-Spine: COMMON NORMALS: full ROM GENERAL: Yes normal visual inspection and Yes trachea midline OTHER: -short, thick neck Chest: COMMONS NORMALS: inspection of chest normal Resp: COMMON NORMALS: normal respiratory effort, no retractions, no use of accessory muscles and clear to auscultation bilaterally EFFORT & INSPECTION: Yes able to speak in complete sentences, Yes symmetric chest movement and No tachypneic AUSCULTATION: clear to auscultation bilaterally Cardio: COMMON NORMALS: S1 normal heart sound, S2 normal heart sound and no murmurs RATE: tachycardic RHYTHM: abnormal rhythm irregularly irregular HEART SOUNDS: S1 normal and S2 normal GI: COMMON NORMALS: normal to inspection, nondistended, normoactive bowel sounds, soft to palpation and non-tender INSPECTION: Yes central obesity PALPATION: Yes soft Extremity: COMMON NORMALS: normal to inspection, full ROM, no clubbing, cyanosis or edema and no pedal edema Neuro: COMMON NORMALS: oriented x3, moves all extremities, no focal motor deficits and no sensory deficits noted SENSORIUM/ORIENTATION: Yes alert Psych: COMMON NORMALS: mental status grossly normal, thought process normal, cooperative, affect normal and speech normal SPEECH: Yes normal speech THOUGHT PROCESS: normal thought process Skin: COMMON NORMALS: no rashes or lesions noted, no jaundice, no petechiae and no mottling GENERAL SKIN EXAM: no rashes or lesions noted Data : 12/10/19 04:15 12/11/19 04:41 A&P Assessment and plan (1) Tachycardia: -noted to be tachycardic in clinic earlier today, no prior known hx of arrhythmia -unknown trigger though appears to have some element of anxiety clinically and fluid overload as noted on CXR -telemetry monitoring -continued tachycardia, looks like atrial fibrillation with RVR, otherwise stable vital signs, continue to monitor -did not respond to Esmolol drip, Cardizem drip; off Amiodarone drip. Also on oral metoprolol, cardizem, amiodarone -IVF hydration x 1 L given in ED; no further IVF due to risk of fluid overload -40 mg dose of IV lasix given in ED; continue gentle diuresis for now -BNP-174; negative D-dimer -UA, UDS negative -Echo ordered, previously done in 04/2019 though poor study -troponins, TSH, Hg wnl -cardiology consult by Dr. Rodríguez appreciated; initiated AC due to [id number] score-3 -daily weights, monitor Is & Os Status: Acute (2) Hypertensive urgency: -presented with significant hypertension -BP controlled now -close monitoring of vital signs, especially BP -on lisinopril, BB, lasix -Echo ordered Status: Resolved (3) HTN (hypertension): -as noted above Status: Chronic (4) Depression: -on trazodone, hold lexapro for now given current tachycardia Status: Chronic Qualifiers: Depression Type: unspecified Qualified Code(s): F32.9 - Major depressive disorder, single episode, unspecified (5) Cognitive developmental delay: -patient has baseline cognitive developmental delay; he is extremely nervous being in the hospital which is an unfamiliar environment for him which e xacerbates the tachycardia and hypertensive urgency. Patient's mother is staying with patient during his hospital stay in an effort to keep him calm. Status: Chronic (6) Morbid obesity: -BMI-54 kg/m2 Status: Chronic Additional A&P Information -noted hyperglycemia; with new diagnosis of DM, A1c-10.3; accuchecks, consistent carb diet. Added meal-time and long acting insulin; adjust as needed for appropriate glycemic control. Diabetes education provided -Noted transaminitis which is likely secondary to fatty liver infiltration particularly in light of metabolic syndrome. Need to monitor LFTs particularly with use of amiodarone -suspect underlying LANDON, will need outpatient sleep study -Dispo: home, lives with cousin -Code status: FULL code -will keep patient in ICU for now as unsure if need for continued drip and would be more disruptive to move him (increased anxiety) due to underlying developmental delay Attestations Medical Necessity Statement*: Patient requires hospitalization for continued management of A. fib with RVR, remains on amiodarone drip as well as multiple antiarrhythmics with continued rapid ventricular rate. Time Spent in Patient Care: 16 - 35 minutes (>than 50% of time spent in counselling and/or direct pt care on unit) . Coding Level of Care Code Acute Interior Design Coordinator for Chg Fwd Exam Comprehensive Diagnoses Tachycardia R00.0 Hypertensive urgency I16.0 HTN (hypertension) I10 Depression F32.9 Depression Type: unspecified Cognitive developmental delay F81.9 Morbid obesity E66.01
[2019-12-11 11:02] LABS: Glucose Point of Care 350 mg/dL (70-110)
--- NOTE | 2019-12-11 16:11 | PM.PN ---
Subjective Subjective: Interval history: Patient remains in atrial fibrillation with rapid ventricular response but heart rate has significantly improved. Apparently there was some bradycardic episode overnight with heart rate dropping in 60s however I am not able to review that episode. Medications: Reviewed: Yes Vitals/I&O/Wt Last Vital Signs Temp 98.3 F 12/11/19 07:49 Pulse 123 H 12/11/19 14:00 Resp 18 12/11/19 14:00 BP 125/78 12/11/19 14:00 Pulse Ox 98 12/11/19 14:00 12/11/19 12/11/19 12/11/19 06:59 14:59 22:59 Intake Total 972.65 / 2564.60 285.35 / 285.35 Balance 972.65 / 2564.60 285.35 / 285.35 Weight last 48 hrs Weight 400 lb Physical Exam Narrative: EXAM NARRATIVE: GENERAL: Obese man sitting in recliner in no acute distress HEENT: Extraocular movement intact. Pupils equal round reactive to light. No pallor or icterus. NECK: Short thick neck. No jugular venous distention appreciated CARDIOVASCULAR SYSTEM: S1-S2 irregular and of variable intensity. No murmur rubs or gallop appreciated RESPIRATORY SYSTEM: Chest clear to auscultation. No wheezes, rhonchi or rubs heard. ABDOMEN: Soft, nontender and nondistended. Normal bowel sounds present. EXTREMITIES: No cyanosis or clubbing. No edema. CATTYMAN: Patient is alert oriented ?3. No focal neurological deficits. Data : 12/10/19 04:15 12/11/19 04:41 A&P Assessment and plan (1) Atrial fibrillation: Its unclear how long he has been in A. fib. -[id number]=7/9, 1 for HTN, 1 for DM-2 and 1 for CHF -Continue Xarelto; stop Amiodarone gtt; continue 400 mg BID PO amiodarone. continue metoprolol tartate 75 mg twice a day. -Normal TSH. Follow-up on echocardiogram once patient's heart rate is better controlled. -Start on Cardizem 30 mg p.o. every 6 hourly. Status: Acute Qualifiers: Atrial fibrillation type: paroxysmal Qualified Code(s): I48.0 - Paroxysmal atrial fibrillation (2) CHF (NYHA class III, ACC/AHA stage C): Lasix 40 mg IV today Status: Acute (3) HTN (hypertension): Status: Chronic (4) Morbid obesity: Status: Chronic (5) Depression: Status: Chronic Qualifiers: Depression Type: unspecified Qualified Code(s): F32.9 - Major depressive disorder, single episode, unspecified Additional A&P Information Anxiety transaminitis : f/u on CMP Hyponatremia Newly diagnosed diabetes mellitus Suspect obstructive sleep apnea: Plan for sleep study as an outpatient. Attestations Medical Necessity Statement*: Needs hospital stay for management of atrial fibrillation with rapid response. Coding Level of Care Code Acute Technician Inventory Specialist for g Fwd Diagnoses Atrial fibrillation I48.0 Atrial fibrillation type: paroxysmal CHF (NYHA class III, ACC/AHA stage C) I50.9 HTN (hypertension) I10 Morbid obesity E66.01 Depression F32.9 Depression Type: unspecified
[2019-12-11 16:39] LABS: Glucose Point of Care 192 mg/dL (70-110)
[2019-12-11] MEDS: FUROsemide 10 mg/mL SDV 4mL 40 MG IVP (17:00)
[2019-12-11 18:13] LABS: Glucose Point of Care 290 mg/dL (70-110)
[2019-12-11 21:00] LABS: Glucose Point of Care 149 mg/dL (70-110)
[2019-12-11] MEDS: insulin glargine 100 units/1 mL 30 UNIT SUBCUT (21:01)
[2019-12-11] MEDS: trazodone 150 mg Tablet PO (21:02)
[2019-12-12] VITALS (8 sets, daily range): BP systolic 96–158; BP diastolic 61–79; PULSE 74–124; RESP 14–21; TEMP 36.8; O2SAT 94–98
--- NOTE | 2019-12-12 00:08 | PC.NURSE ---
Pt converted to sinus rhythm with PAC's. Rate 74.
--- NOTE | 2019-12-12 02:06 | PC.NURSE ---
Sinus rhythm with frequent PVC's. Rate in 70's-80's. Did observe rate drop briefly as low as 52. Pt asleep in chair, BP 106/67.
[2019-12-12] MEDS: amiodarone 200 mg Tablet 400 MG PO (02:18)
[2019-12-12] MEDS: acetaminophen 325 mg Tablet 650 MG PO (02:20)
--- NOTE | 2019-12-12 02:30 | PC.NURSE ---
Physician Notification Dr. Simms notified of patient HR sinus rhythm with multiple PVC's. Rate primarily in 70's-80's but has dropped to 50-60's briefly. Administered scheduled dose of 400mg amiodarone at 0200 and have PO cardizem next due at 0315. Orders were given to hold 0315 dose of cardizem.
[2019-12-12] MEDS: dilTIAZem 30 mg Tablet PO ×2 (03:38→08:30)
--- NOTE | 2019-12-12 03:40 | PC.NURSE ---
Pt back in atrial fib with RVR, rate 110-130. Administered 30 mg cardizem previously held. BP 118/55, pt asymptomatic sitting up in chair with mother at bedside. Will continue to monitor.
[2019-12-12 05:11] LABS: Alanine Aminotransferase 138 U/L (0-41); Albumin Level 3.7 g/dL (3.5-5.2); Alkaline Phosphatase 87 IU/L (40-130); Anion Gap 15.6 (5-19); Aspartate Amino Transferase 95 U/L (0-40); Blood Urea Nitrogen 16 mg/dL (6-20); Calcium 8.9 mg/dL (8.5-10.5); Carbon Dioxide 27 mmol/L (22-29); Chloride 94 mmol/L (98-107); Globulin 3.3 g/dL (1.3-4.6); Glomerular Filtration Rate 99.1 mL/min (90-130); Glucose 270 mg/dL (65-115); Osmolality Calculated 280 mOsm/kg (285-295); Potassium 4.6 mmol/L (3.5-5.1); Sodium 132 mmol/L (136-145); Total Bilirubin 1.1 mg/dL (0.15-1.2)
[2019-12-12 07:27] LABS: Glucose Point of Care 296 mg/dL (70-110)
[2019-12-12] MEDS: rivaroxaban 10 mg Tablet 20 MG PO (07:36)
[2019-12-12] MEDS: lisinopril 20 mg Tablet PO (07:37)
--- NOTE | 2019-12-12 08:00 | USCV_ITS ---
Gregor Shepard Age: 29 Gender: M : 1990 Exam Date: 12/12/2019 08:06 Ordering Phys: Liberty Montoya MD Technologist: Jada Lloyd [place] [facility] [place]: Tachycardia, hypertensive urgency BP: 137 / 73 HR: 95 Rhythm: Sinus Technical Quality: Poor because of body habitus MEASUREMENTS (Male / Female) Normal Values 2D ECHO LV Diastolic Diameter PLAX 4.0 cm 4.2 - 5.9 / 3.9 - 5.3 cm LV Systolic Diameter PLAX 2.4 cm LV Chamber Size 3.8 cm IVS Diastolic Thickness 1.5 cm 0.6 - 1.0 / 0.6 - 0.9 cm IVS Systolic Thickness 1.6 cm LVPW Diastolic Thickness 1.0 cm 0.6 - 1.0 / 0.6 - 0.9 cm LVPW Systolic Thickness 1.6 cm RV Chamber Size 2.1 cm LVOT Diameter 2.1 cm LV Ejection Fraction 2D Teich 70.9 % LA Diameter 3.1 cm LA Width 3.4 cm LA Height 3.9 cm RA Width 2.7 cm RA Height 4.3 cm Aorta at Sinotubular Diameter 2.4 cm M-MODE LV Diastolic Diameter MM 5.4 cm 4.2 - 5.9 / 3.9 - 5.3 cm LV Systolic Diameter MM 3.7 cm LV Ejection Fraction MM Teich 59.5 % IVS Diastolic Thickness MM 0.8 cm 0.6 - 1.0 / 0.6 - 0.9 cm IVS Systolic Thickness MM 1.2 cm LVPW Diastolic Thickness MM 1.2 cm 0.6 - 1.0 / 0.6 - 0.9 cm LVPW Systolic Thickness MM 1.6 cm RV Diastolic Diameter MM 1.6 cm Aortic Annulus Diameter 3.5 cm LA Ao Ratio MM 0.9 MV E Point Septal Separation 0.4 cm DOPPLER AV Peak Velocity 125.0 cm/s LVOT Peak Velocity 78.0 cm/s AV Area Cont Eq vti 2.6 cm squared AV Area Cont Eq pk 2.1 cm squared MV Area PHT 4.5 cm squared Mitral E to A Ratio 1.4 MV E' Velocity 10.0 cm/s Mitral E to MV E' Ratio 6.9 Mitral E to LV E' Lateral Ratio 7.5 Mitral E to LV E' Septal Ratio 6.5 TV Peak E Velocity 49.0 cm/s PV Peak Velocity 121.0 cm/s RV Acceleration Time 0.1 s RV Ejection Time 0.2 s RV AcT/ET 0.3 FINDINGS Left Ventricle Normal left ventricular cavity size. Normal left ventricular systolic function. Left ventricular ejection fraction is estimated at 55 %. Although no diagnostic regional wall motion abnormality could be identified, this possibility cannot be completely excluded based on the study. Normal diastolic function. Right Ventricle Normal right ventricular size and systolic function. Right Atrium Normal right atrial size. Left Atrium Left atrium not well visualized. Mitral Valve Structurally normal mitral valve. Aortic Valve Structurally normal trileaflet aortic valve. No aortic valve stenosis. No aortic valve regurgitation. Tricuspid Valve Structurally normal tricuspid valve. Trace tricuspid valve regurgitation. Pulmonic Valve Pulmonic valve not well visualized. No pulmonary valve regurgitation. Pericardium No pericardial effusion. Aorta Normal size aortic root and proximal ascending aorta. CONCLUSIONS 1. This is a technically very difficult study. 2. Normal left ventricular cavity size and systolic function. Left ventricular ejection fraction is estimated at 55 %. Although no diagnostic regional wall motion abnormality could be identified, this possibility cannot be completely excluded based on the study. Normal diastolic function. 3. Normal right ventricular size and systolic function. 4. No significant valvular abnormality. 5. No prior similar studies to compare. Shira Rodríguez MD (Electronically Signed) Final Date: 12 December 2019 11:21 S
--- NOTE | 2019-12-12 08:21 | P.PN_ITS ---
Subjective Subjective: Interval history: Overnight, dose of oral cardizem held due to concern for low HR (60s). Converted to sinus rhythm around midnight, remains in NSR per telemetry. BP controlled. Has continued to void. AM labs noted, with increased transaminitis. Accucheks noted. Echo today as HR improved. Medications: Reviewed: Yes Medication Review Details: Active Medications Generic Name Dose Route Start Last Admin Trade Name Freq PRN Reason Stop Dose Admin Acetaminophen 650 mg 12/09/19 17:04 12/12/19 02:20 Tylenol PO 650 mg Q6H PRN Administration MILD PAIN Amiodarone HCl 400 mg 12/10/19 14:09 12/12/19 02:18 Cordarone PO 400 mg Q12H AJ Administration Dextrose 25 ml 12/09/19 17:04 D50w IVP ONCE PRN hypoglycemia prot ocol Protocol Dextrose 50 ml 12/09/19 17:04 D50w IVP PRN PRN hypoglycemia prot ocol Protocol Diltiazem HCl 30 mg 12/11/19 09:15 12/12/19 03:38 Cardizem PO 30 mg Q6H AJ Administration Furosemide 40 mg 12/09/19 17:04 12/11/19 17:00 Lasix IVP 40 mg Q24H AJ Administration Glucagon 1 mg 12/09/19 17:04 Glucagen IM ONCE PRN Adult Acute Hypog lycemia Prot. Protocol Dextrose 500 mls @ 100 mls /hr 12/09/19 17:04 D5w IV ONCE PRN Adult Acute Hypog lycemia Prot Protocol Amiodarone HCl 900 mg/ 518 mls @ 0 mls/h r 12/09/19 22:30 12/11/19 09:18 Dextrose/ IV Misce llaneous IV Infused Supplies .Q0M AJ Titration Protocol Per Protocol Insulin Aspart 0 unit 12/09/19 18:00 12/12/19 07:37 Novolog SUBCUT 8 unit WM&BEDTIME AJ Administration Protocol Insulin Aspart 15 unit 12/11/19 11:00 12/12/19 07:38 Novolog SUBCUT 15 unit TIDAC AJ Administration Insulin Glargine 30 unit 12/11/19 21:00 12/11/19 21:01 Lantus SUBCUT 30 unit BEDTIME AJ Administration Lisinopril 20 mg 12/12/19 09:00 12/12/19 07:37 Prinivil PO 20 mg DAILY AJ Administration Lorazepam 2 mg 12/09/19 17:04 Ativan IVP Q6H PRN ANXIETY Metoprolol Tartrat e 75 mg 12/10/19 20:00 12/11/19 21:51 Lopressor PO 75 mg Q12H AJ Administration Trazodone HCl 150 mg 12/09/19 21:00 12/11/19 21:02 Desyrel PO 150 mg BEDTIME AJ Administration No Known Allergies Allergy (Verified 12/09/19 12:08) Vitals/I&O/Wt Last Vital Signs Temp 98.3 F 12/12/19 02:00 Pulse 95 12/12/19 08:00 Resp 18 12/12/19 08:00 BP 158/79 12/12/19 08:00 Pulse Ox 97 12/12/19 08:00 12/11/19 12/12/19 12/12/19 22:59 06:59 14:59 Intake Total 236 / 521.35 500 / 1021.35 360 / 360 Balance 236 / 521.35 500 / 1021.35 360 / 360 Weight last 48 hrs Weight 181.437 kg Physical Exam Const: COMMON NORMALS: no apparent distress, oriented x3 and alert GENERAL APPEARANCE: cooperative, comfortable and diaphoretic NUTRITIONAL APPEARANCE: obese morbidly obese ORIENTATION/CONSCIOUSNESS: Yes awake HENMT: COMMON NORMALS: normocephalic, head/scalp atraumatic, hearing grossly normal bilaterally and moist oral mucous membranes HEAD & SCALP: normocephalic and atraumatic Eye: COMMON NORMALS: PERRL, EOMs intact bilaterally and conjunctivae normal CONJUNCTIVA: Yes conjunctivae normal PUPIL: Yes PERRL Neck/C-Spine: COMMON NORMALS: full ROM GENERAL: Yes normal visual inspection and Yes trachea midline OTHER: -short, thick neck Chest: COMMONS NORMALS: inspection of chest normal Resp: COMMON NORMALS: normal respiratory effort, no retractions, no use of accessory muscles and clear to auscultation bilaterally EFFORT & INSPECTION: Yes able to speak in complete sentences, Yes symmetric chest movement and No tachypneic AUSCULTATION: clear to auscultation bilaterally Cardio: COMMON NORMALS: regular rate, regular rhythm, S1 normal heart sound, S2 normal heart sound and no murmurs RATE: regular rate RHYTHM: regular rhythm HEART SOUNDS: S1 normal and S2 normal GI: COMMON NORMALS: normal to inspection, nondistended, normoactive bowel kimberly nds, soft to palpation and non-tender INSPECTION: Yes central obesity PALPATION: Yes soft Extremity: COMMON NORMALS: normal to inspection, full ROM, no clubbing, cyanosis or edema and no pedal edema Neuro: COMMON NORMALS: oriented x3, moves all extremities, no focal motor deficits and no sensory deficits noted SENSORIUM/ORIENTATION: Yes alert Psych: COMMON NORMALS: mental status grossly normal, thought process normal, cooperative, affect normal and speech normal SPEECH: Yes normal speech THOUGHT PROCESS: normal thought process Skin: COMMON NORMALS: no rashes or lesions noted, no jaundice, no petechiae and no mottling GENERAL SKIN EXAM: no rashes or lesions noted Data : 12/10/19 04:15 12/12/19 04:27 A&P Assessment and plan (1) Tachycardia: -noted to be tachycardic in clinic earlier today, no prior known hx of arrhythmia -unknown trigger though appears to have some element of anxiety clinically and fluid overload as noted on CXR -telemetry monitoring -continued tachycardia, looks like atrial fibrillation with RVR, otherwise s table vital signs, continue to monitor -did not respond to Esmolol drip, Cardizem drip; off Amiodarone drip. Also on oral metoprolol, cardizem, amiodarone -IVF hydration x 1 L given in ED; no further IVF due to risk of fluid overload -40 mg dose of IV lasix given in ED; continue gentle diuresis for now -BNP-174; negative D-dimer -UA, UDS negative -Echo: EF=55%, normal diastolic and systolic function, no significant valvular abnormality, previously done in 04/2019 though poor study -troponins, TSH, Hg wnl -cardiology consult by Dr. Rodríguez appreciated; initiated AC due to [id number] score-3 -daily weights, monitor Is & Os -converted to NSR overnight, rate controlled Status: Acute (2) Hypertensive urgency: -presented with significant hypertension -BP controlled now -close monitoring of vital signs, especially BP -on lisinopril, BB, lasix -Echo ordered Status: Resolved (3) HTN (hypertension): -as noted above Status: Chronic (4) Depression: -on trazodone, hold lexapro for now given current tachycardia Status: Chronic Qualifiers: Depression Type: unspecified Qualified Code(s): F32.9 - Major depressiv e disorder, single episode, unspecified (5) Cognitive developmental delay: -patient has baseline cognitive developmental delay; he is extremely nervous being in the hospital which is an unfamiliar environment for him which exacerbates the tachycardia and hypertensive urgency. Patient's mother is staying with patient during his hospital stay in an effort to keep him calm. Status: Chronic (6) Morbid obesity: -BMI-54 kg/m2 Status: Chronic Additional A&P Information -noted hyperglycemia; with new diagnosis of DM, A1c-10.3; accuchecks, consistent carb diet. Added meal-time and long acting insulin; adjust as needed for appropriate glycemic control. Diabetes education provided. Due to cost issues, new onset and for easier administration to encourage compliance, will start on metformin -Noted transaminitis which is likely secondary to fatty liver infiltration particularly in light of metabolic syndrome. Need to monitor LFTs particularly with use of amiodarone -suspect underlying LANDON, will need outpatient sleep study -Dispo: home, lives with cousin -Code status: FULL code Attestations Medical Necessity Statement*: Discharge home today Time Spent in Patient Care: 16 - 35 minutes (>than 50% of time spent in counselling and/or direct pt care on unit) . Coding Level of Care Code Acute Planer Offbearer for g Fwd Exam Comprehensive Diagnoses Tachycardia R00.0 Hypertensive urgency I16.0 HTN (hypertension) I10 Depression F32.9 Depression Type: unspecified Cognitive developmental delay F81.9 Morbid obesity E66.01
[2019-12-12] MEDS: metoprolol tartrate 50 mg Tablet 75 MG PO (08:31)
[2019-12-12 11:16] LABS: Glucose Point of Care 252 mg/dL (70-110)
--- NOTE | 2019-12-12 11:37 | PM.PN ---
Subjective Subjective: Interval history: Doing well Medications: Reviewed: Yes Vitals/I&O/Wt Last Vital Signs Temp 98.3 F 12/12/19 09:11 Pulse 80 12/12/19 10:00 Resp 14 12/12/19 10:00 BP 132/70 12/12/19 10:00 Pulse Ox 95 12/12/19 10:00 12/11/19 12/12/19 12/12/19 22:59 06:59 14:59 Intake Total 236 / 521.35 500 / 1021.35 360 / 360 Balance 236 / 521.35 500 / 1021.35 360 / 360 Physical Exam Narrative: EXAM NARRATIVE: GENERAL: Obese man sitting in recliner in no acute distress HEENT: Extraocular movement intact. Pupils equal round reactive to light. No pallor or icterus. NECK: Short thick neck. No jugular venous distention appreciated CARDIOVASCULAR SYSTEM: S1-S2 irregular and of variable intensity. No murmur rubs or gallop appreciated RESPIRATORY SYSTEM: Chest clear to auscultation. No wheezes, rhonchi or rubs heard. EXTREMITIES: No cyanosis or clubbing. No edema. FIRST AID NURSE: Patient is alert oriented ?3. No focal neurological deficits. Data : 12/10/19 04:15 12/12/19 04:27 A&P Assessment and plan (1) Atrial fibrillation: Its unclear how long he has been in A. fib. He has converted to NSR -[id number]=5/9, 1 for HTN, 1 for DM-2 and 1 for CHF -Continue Xarelto, metoprolol tartate 75 mg twice a day. cardizem 30 mg PO q 6 hr today and change to 120 mg daily in morning. -continue 400 mg BID PO amiodarone x 4 days and then decrease to 200 mg twice a day for 1 week and then 200 mg daily -Normal TSH. Normal lV function on echocardiogram. -stable to be dischrged home. -f/u in office with me in 10-14 days Status: Acute Qualifiers: Atrial fibrillation type: paroxysmal Qualified Code(s): I48.0 - Paroxysmal atrial fibrillation (2) CHF (NYHA class III, ACC/AHA stage C): change to lasix 40 mg PO daily on discharge Status: Acute (3) HTN (hypertension): Status: Chronic (4) Morbid obesity: Status: Chronic (5) Depression: Status: Chronic Qualifiers: Depression Type: unspecified Qualified Code(s): F32.9 - Major depressive disorder, single episode, unspecified Additional A&P Information Anxiety transaminitis : f/u on CMP in 10 days Hyponatremia Newly diagnosed diabetes mellitus Suspect obstructive sleep apnea: Plan for sleep study as an outpatient. Attestations Medical Necessity Statement*: stable to be discharged home. Coding Level of Care Code Acute Shuttle Repairer for [facility] Fwd Diagnoses Atrial fibrillation I48.0 Atrial fibrillation type: paroxysmal CHF (NYHA class III, ACC/AHA stage C) I50.9 HTN (hypertension) I10 Morbid obesity E66.01 Depression F32.9 Depression Type: unspecified
--- NOTE | 2019-12-12 12:08 | P.DS_ITS ---
Discharge Providers Date of Admission: 12/09/19 15:50 Date of Discharge: December 12, 2019 Attending Provider at Admission: Liberty Montoya MD Attending Provider at Discharge: Liberty Montoya MD Diagnoses at Discharge Discharge Diagnosis (1) Tachycardia: Status: Acute Problem details: -noted to be tachycardic in clinic earlier today, no prior known hx of arrhythmia -unknown trigger though appears to have some element of anxiety clinically and fluid overload as noted on CXR -telemetry monitoring -continued tachycardia, looks like atrial fibrillation with RVR, otherwise stable vital signs, continue to monitor -did not respond to Esmolol drip, Cardizem drip; off Amiodarone drip. Also on oral metoprolol, cardizem, amiodarone -IVF hydration x 1 L given in ED; no further IVF due to risk of fluid overload -40 mg dose of IV lasix given in ED; continue gentle diuresis for now -BNP-174; negative D-dimer -UA, UDS negative -Echo: EF=55%, normal diastolic and systolic function, no significant valvular a bnormality, previously done in 04/2019 though poor study -troponins, TSH, Hg wnl -cardiology consult by Dr. Rodríguez appreciated; initiated AC due to [id number] score-3 -daily weights, monitor Is & Os -converted to NSR overnight, rate controlled (2) Hypertensive urgency: Status: Resolved Problem details: -presented with significant hypertension -BP controlled now -close monitoring of vital signs, especially BP -on lisinopril, BB, lasix -Echo as noted above (3) HTN (hypertension): Status: Chronic Problem details: continue current medications. Qualifiers: Hypertension type: essential hypertension Qualified Code(s): I10 - Esse ntial (primary) hypertension (4) Depression: Status: Chronic Problem details: -on trazodone, can resume lexapro Qualifiers: Depression Type: unspecified Qualified Code(s): F32.9 - Major depr essive disorder, single episode, unspecified (5) Cognitive developmental delay: Status: Chronic Problem details: -patient has baseline cognitive developmental delay; he is extremely nervous being in the hospital which is an unfamiliar environment for him which exacerbates the tachycardia and hypertensive urgency. Patient's mother is staying with patient during his hospital stay in an effort to keep him calm. (6) Morbid obesity: Status: Chronic Problem details: -BMI-54 kg/m2 Other Information Additional DC diagnoses/information: -noted hyperglycemia; with new diagnosis of DM, A1c-10.3; accuchecks, consistent carb diet. Added meal-time and long acting insulin; adjust as needed for appropriate glycemic control. Diabetes education provided. Due to cost issues, new onset and for easier administration to encourage compliance, will start on metformin -Noted transaminitis which is likely secondary to fatty liver infiltration particularly in light of metabolic syndrome. Need to monitor LFTs particularly with use of amiodarone -suspect underlying LANDON, will need outpatient sleep study Reason for Visit Reason for Visit: Reason For Visit: TACHYCARDIA, HTN Hospital Course Hospital Course: Patient was admitted to the ICU secondary to noted atrial fibrillation with RVR, had been started on esmolol drip after failure to respond to oral and IV doses of metoprolol. He continues to have arrhythmia with RVR despite esmolol so was switched to Cardizem drip. Unfortunately continued to be in A. fib with RVR and was switched to amiodarone drip. At this point cardiology was consulted and recommended continuation of amiodarone drip with addition of oral amiodarone, oral Cardizem and increased dose of oral beta- gab. He was diuresed with Lasix secondary to noted mild pulmonary vascular congestion on chest x-ray. Echo was done, noted delay secondary to RVR. EF is 55% with normal systolic and diastolic function and no significant valvular abnormality. Patient converted to normal sinus rhythm overnight and is to be continued on oral amiodarone, Cardizem and metoprolol. He has already been started on anticoagulation with Xarelto. Patient was found to be a new onset diabetic and was treated with insulin while hospitalized. However due to cost issues, underlying developmental delay and ease of administration he will be discharged on oral metformin with plan to follow-up closely with his primary care provider. He has had diabetes education done during his hospital stay. Glucose meter indicate has been prescribed on discharge. He will need to follow-up with cardiology in 10 to 14 days. Outpatient sleep study has been ordered for evaluation of obstructive sleep apnea. Discharge Summary: -Patient to follow-up with his primary care provider in 1 week -Patient follow-up with page technician Dr. Rodríguez in 10 to 14 days Physical Exam Const: COMMON NORMALS: no apparent distress, oriented x3 and alert GENERAL APPEARANCE: cooperative, comfortable and diaphoretic NUTRITIONAL APPEARANCE: obese morbidly obese ORIENTATION/CONSCIOUSNESS: Yes awake HENMT: COMMON NORMALS: normocephalic, head/scalp atraumatic, hearing grossly normal bilaterally and moist oral mucous membranes HEAD & SCALP: normocephalic and atraumatic Eye: COMMON NORMALS: PERRL, EOMs intact bilaterally and conjunctivae normal CONJUNCTIVA: Yes conjunctivae normal PUPIL: Yes PERRL Neck/C-Spine: COMMON NORMALS: full ROM GENERAL: Yes normal visual inspection and Yes trachea midline OTHER: -short, thick neck Chest: COMMONS NORMALS: inspection of chest normal Resp: COMMON NORMALS: normal respiratory effort, no retractions, no use of accessory muscles and clear to auscultation bilaterally EFFORT & INSPECTION: Yes able to speak in complete sentences, Yes symmetric chest movement and No tachypneic AUSCULTATION: clear to auscultation bilaterally Cardio: COMMON NORMALS: regular rate, regular rhythm, S1 normal heart sound, S2 normal heart sound and no murmurs RATE: regular rate RHYTHM: regular rhythm HEART SOUNDS: S1 normal and S2 normal GI: COMMON NORMALS: normal to inspection, nondistended, normoactive bowel sounds, soft to palpation and non-tender INSPECTION: Yes central obesity PALPATION: Yes soft Extremity: COMMON NORMALS: normal to inspection, full ROM, no clubbing, cyanosis or edema and no pedal edema Neuro: COMMON NORMALS: oriented x3, moves all extremities, no focal motor deficits and no sensory deficits noted SENSORIUM/ORIENTATION: Yes alert Psych: COMMON NORMALS: mental status grossly normal, thought process normal, cooperative, affect normal and speech normal SPEECH: Yes normal speech THOUGHT PROCESS: normal thought process Skin: COMMON NORMALS: no rashes or lesions noted, no jaundice, no petechiae and no mottling GENERAL SKIN EXAM: no rashes or lesions noted Discharge Data Data Completed and Pending: Completed Studies During Hospitalization Category Date Time Status XR chest 1V dale ble [id number] Stat Exams 12/09/19 12:14 Completed CV echo complete* [id number] Routine Ultrasound 12/12/19 08:00 Completed Labs from last 24 hours 12/12/19 12/12/19 12/12/19 11:10 07:22 04:27 Sodium 132 L Potassium 4.6 Chloride 94 L Carbon Dioxide 27 Anion Gap 15.6 BUN 16 Creatinine 0.9 GFR Calculation 99.1 Glucose 270 H POC Glucose 252 296 Calculated Osmolal ity 280 L Calcium 8.9 Total Bilirubin 1.1 AST 95 H ALT 138 H Alkaline Phosphata se 87 Total Protein 7.0 Albumin 3.7 Globulin 3.3 12/11/19 12/11/19 12/11/19 20:57 18:08 16:35 Sodium Potassium Chloride Carbon Dioxide Anion Gap BUN Creatinine GFR Calculation Glucose POC Glucose 149 290 192 Calculated Osmolal ity Calcium Total Bilirubin AST ALT Alkaline Phosphata se Total Protein Albumin Globulin Vitals: Last Vital Signs Temp 98.3 F 12/12/19 09:11 Pulse 80 12/12/19 10:00 Resp 14 12/12/19 10:00 BP 132/70 12/12/19 10:00 Pulse Ox 95 12/12/19 10:00 Discharge Plan Discharge Patient Disposition: Home, Self-Care Condition: Stable Prescriptions: New lisinopril 20 mg Tablet 20 mg PO DAILY 30 Days Qty: 30 RF: 0 metoprolol tartrate 50 mg Tablet 75 mg PO Q12H 30 Days Qty: 90 RF: 0 Xarelto 10 mg Tablet 20 mg PO DAILY 30 Days Qty: 30 RF: 0 amiodarone 200 mg tablet 200 mg PO BID Qty: 60 RF: 0 Cartia XT 120 mg capsule,extended release 24hr 120 mg PO DAILY 30 Days Qty: 30 RF: 0 Lasix 40 mg tablet 40 mg PO DAILY 30 Days Qty: 30 RF: 0 metformin 500 mg tablet 500 mg PO BID 30 Days Qty: 60 RF: 0 (DME) blood-glucose meter Misc See Rx Instructions .ROUTE .MEDSUPPLY Qty: 1 RF: 0 Continued trazodone 150 mg tablet 150 mg PO BEDTIME RF: 0 escitalopram oxalate 20 mg tablet 20 mg PO DAILY RF: 0 Discontinued ibuprofen 200 mg Tablet 200 - 800 mg PO PRN RF: 0 lisinopril 40 mg tablet 40 mg PO DAILY RF: 0 Discharge Orders: Discharge Order (Routine); Ordered 12/12/19 Ordered By: Liberty Montoya Other Ambulatory Orders: Sleep Study/Titration (Routine) Timeframe: 1 Month Location: None Selected Ordered By: Liberty Montoya Referrals: Shira Rodríguez MD [Physician] - 2 weeks Vigna,Janett, STABILIZER OPERATOR [Nurse Practitioner] - 4-7 days (Post hospital discharge follow up. Newly diagnosed DM, on metformin. Also has atrial fibrillation. ) Discharge Diet: Cardiac and Diabetic Discharge Activity: Resume usual activity Discharge Attestations Time Spent in Discharge Care*: greater than 30 min Specific Discharge Activities: Specific discharge activities: educating patient, educating and/or supporting family/caregiver, discussing with pcp/other providers, discussing with bilingual patient support caseworker/social workers/dc planners, documenting/other paperwork and evaluating patient/reviewing data Status at Discharge: Cognitive status at discharge: other (has baseline developmental delay) , Behavioral status at discharge: cooperative , Functional status at discharge: independent ambulation Overall status at discharge: patient is back to baseline Quality Metrics Clinical Quality Measures During this hospital stay, did patient experience: None Coding Level of Care Code Acute Pet Sitting for [employer] Fwd Diagnoses Tachycardia R00.0 Hypertensive urgency I16.0 HTN (hypertension) I10 Hypertension type: essential hypertension Depression F32.9 Depression Type: unspecified Cognitive developmental delay F81.9 Morbid obesity E66.01
--- NOTE | 2019-12-12 12:15 | PC.SOCIAL ---
Pg 2 IMM Explained to pt Pg 2 IMM. Pt verbally understands & signed. No questions voiced. Provided pt a copy & left on pt's bedside table. Signed, dated, & timed a copy then placed in chart.
--- NOTE | 2019-12-12 12:56 | PC.NURSE ---
discharge nurse instructed patient and mother on new medications, possible side effects, follow up appointments. Patient and mother both verbalized understanding. discussed importance of monitoring blood glucose. both verbalized understanding. IV removed, cath intact and site is asymptomatic. Patient ambulated to family vehicle. Tolerated well.
== END 2019-12-12 13:07 | disposition home or self-care (01) | DRG 309 ==
LOC: ER 12:06 → ICU 16:26
PROVIDERS: Family Medicine; Internal Medicine Cardiovascular Disease; Admitting Provider Family Medicine; Emergency Provider Family Medicine; Visit Provider Family Medicine
DX: R00.0 Tachycardia, unspecified (principal); Z68.43 Body mass index [BMI] 50.0-59.9, adult; E87.1 Hypo-osmolality and hyponatremia; I16.0 Hypertensive urgency; I11.0 Hypertensive heart disease with heart failure; E11.65 Type 2 diabetes mellitus with hyperglycemia; E66.01 Morbid (severe) obesity due to excess calories; F81.9 Developmental disorder of scholastic skills, unspecified; G47.33 Obstructive sleep apnea (adult) (pediatric); I48.0 Paroxysmal atrial fibrillation; F41.8 Other specified anxiety disorders; I50.9 Heart failure, unspecified
CPT/HCPCS: 12345; 36415; 36416; 36600; 71045; 80048; 80051; 80053; 80076; 80306; 81001; 82810; 82962; 83036; 83735; 83880; 83986; 84443; 84484; 85025; 85378; 85610; 93005; 93306; 96372; 96374; 96375; 99284; 99285; J0282; J1815; J1940; J2060; J3490; J7060

== ENCOUNTER → 2019-12-28 13:58 | Outpatient (BNVA) | payer MEDICARE, MEDICAID, SELFPAY | PROVIDERS: Referring Provider Family Medicine; Visit Provider Internal Medicine Cardiovascular Disease | DX: I50.9 Heart failure, unspecified (principal); I48.0 Paroxysmal atrial fibrillation; E66.01 Morbid (severe) obesity due to excess calories; I10 Essential (primary) hypertension | CPT/HCPCS: 80053; 83880; 84443 ==